=== PATIENT | female | born 1970 | race Caucasian/White ===

== ENCOUNTER 2016-09-11 11:23 | Emergency (ER) | payer BC ==
[2016-09-11] MEDS ORDERED: ALLEGRA ALLERG180 M1 PO (11:40)
[2016-09-11] MEDS ORDERED: NORCO 5-325 TA1 EACH PO (15:05)
[2016-09-11] MEDS ORDERED: ZOFRAN4 M2 PO (15:05)
== END 2016-09-11 16:00 ==
LOC: EDMED 11:23
DX: S06.0X0A Concussion without loss of consciousness, initial encounter (principal); M54.5 Low back pain; V80.010A Animal-rider injured by fall from or being thrown from horse in noncollision accident, initial encounter; Y92.89 Other specified places as the place of occurrence of the external cause
CPT/HCPCS: J1170; J1885; J2405